=== PATIENT | female | born 1995 | race Hispanic/Latino ===

== ENCOUNTER 2021-08-05 05:22 | Emergency (ER) | payer SELFPAY ==
[~2021-08-05] VITALS: Ht 165.1 cm; Wt 100.0 kg
[2021-08-05] VITALS (13 sets, daily range): BP systolic 78–127; BP diastolic 36–4412
[~2021-08-05 05:22] MED LIST: AMLODIPINE5 MG PO; CEPHALEXIN500 M1 PO; FLEXERIL PO; METFORMIN500 MG PO; MOTRIN400 MG PO; NAPROXEN250 MG PO; NO MEDS; ONDANSETRON4 MG PO; ULTRAM50 M1 PO
[2021-08-05] MEDS ORDERED: LANTUS100 UNIT SC (06:01)
[2021-08-05] MEDS ORDERED: HUMALOG100 UNIT/M SC (06:02)
[2021-08-05 06:08] LABS: HEMATOCRIT 40.6 % (37.0-47.0); HEMOGLOBIN 13.6 g/dl (12.0-16.0); IMMATURE GRANULOCYTES 0.2 % (0.0-5.0); MEAN CELL VOLUME 84.8 fL CALC (80.0-100.0); MEAN CORPUSCULAR HGB 28.4 pG CALC (26.0-32.0); MEAN CORPUSCULAR HGB CONC 33.5 g/dL CAL (32.0-36.0); NEUT# 4.18 thou/uL (2.00-7.15); RED BLOOD COUNT 4.79 mill/uL (4.20-5.60); RED CELL DISTRI WIDTH 12.6 % (11.5-15.5)
[2021-08-05 06:19] LABS: ALKALINE PHOSPHATASE 54 u/l (38-126); AMYLASE 76 u/l (30-110); ANION GAP 14 (6-22 (CALC)); BILIRUBIN, TOTAL 0.4 mg/dL (0.0-1.4); BUN 23 mg/dL (7-17); BUN/CREATININE RATIO 40 (12-20 (CALC)); CARBON DIOXIDE 23 mmol/l (22-30); CHLORIDE 105 mmol/l (95-108); CREATININE 0.6 mg/dL (0.5-1.0); GFR > 60 ML/MIN (>=60 (CALC)); GFR FOR AFR.AMER. > 60 ML/MIN (>=60 (CALC)); LIPASE 61 u/l (23-300); POTASSIUM 3.1 mmol/l (3.5-5.1); SGOT/AST 28 u/l (14-36); SODIUM 139 mmol/l (137-146); TOTAL PROTEIN 6.8 g/dL (6.3-8.2)
[2021-08-05 08:02] LABS: URINE BILIRUBIN - DIPSTICK NEGATIVE (NEGATIVE); URINE BLOOD DIPSTICK NEGATIVE (NEGATIVE); URINE COLOR YELLOW; URINE GLUCOSE - DIPSTICK NEGATIVE (NEGATIVE); URINE KETONE TRACE mg/dL (NEGATIVE); URINE LEUK ESTERASE NEGATIVE (NEGATIVE); URINE NITRITE - DIPSTICK NEGATIVE (Negative); URINE PH 5.5 (4.5-8.0); URINE PROTEIN - DIPSTICK TRACE mg/dL (NEG-TRACE); URINE SPECIFIC GRAVITY 1.025; URINE UROBILINOGEN - DIPSTICK 0.2 E.U./dL (0.2)
[2021-08-05] MEDS ORDERED: ZOFRAN4 MG/TAB PO (13:23)
== END 2021-08-05 14:55 | disposition home or self-care (01) | DRG 392 ==
LOC: ED 05:22
PROVIDERS: Family Medicine
DX: R11.2 Nausea with vomiting, unspecified (principal); R10.13 Epigastric pain; R19.7 Diarrhea, unspecified; R00.0 Tachycardia, unspecified; E11.9 Type 2 diabetes mellitus without complications; Z79.4 Long term (current) use of insulin; Z20.822 Contact with and (suspected) exposure to COVID-19
CPT/HCPCS: J3475; Q9967

== ENCOUNTER 2021-12-31 16:23 | Inpatient (IN) | payer SELFPAY ==
[2021-12-31] VITALS (18 sets, daily range): BP systolic 86–108; BP diastolic 51–71
[~2021-12-31] VITALS: Ht 167.6 cm; Wt 97.0 kg
[~2021-12-31 16:23] MED LIST changes: +HUMALOG100 UNIT/M SC; +LANTUS100 UNIT SC; +ZOFRAN4 MG/TAB PO
--- NOTE | 2021-12-31 16:47 | NUR ---
PATIENT ESCORTED TO ROOM VIA WHEELCHAIR IN NAD. CONNECTED TO MONITOR AND PROVIDER NOTIFIED OF PATIENT STATUS.
[2021-12-31 17:26] LABS: IMMATURE GRANULOCYTES 1.7 % (0.0-5.0); MEAN CELL VOLUME 88.8 fL CALC (80.0-100.0); MEAN CORPUSCULAR HGB 29.5 pG CALC (26.0-32.0); MEAN CORPUSCULAR HGB CONC 33.2 g/dL CAL (32.0-36.0); NEUT# 14.86 thou/uL (2.00-7.15); RED BLOOD COUNT 3.76 mill/uL (4.20-5.60); RED CELL DISTRI WIDTH 12.7 % (11.5-15.5)
[2021-12-31 17:28] LABS: HEMATOCRIT 33.4 % (37.0-47.0); HEMOGLOBIN 11.1 g/dl (12.0-16.0)
[2021-12-31 17:39] LABS: ALBUMIN 3.7 g/dL (3.2-5.0); TOTAL PROTEIN 6.4 g/dL (6.3-8.2)
--- NOTE | 2021-12-31 17:47 | NUR ---
Reassessment of patient completed. No distress noted.
[2021-12-31 17:53] LABS: BILIRUBIN, TOTAL 0.6 mg/dL (0.0-1.4); CREATININE 2.7 mg/dL (0.5-1.0); POTASSIUM 5.6 mmol/l (3.5-5.1)
[2021-12-31 18:39] LABS: URINE BILIRUBIN - DIPSTICK NEGATIVE (NEGATIVE); URINE BLOOD DIPSTICK NEGATIVE (NEGATIVE); URINE COLOR YELLOW; URINE GLUCOSE - DIPSTICK >=1000 mg/dL (NEGATIVE); URINE KETONE TRACE mg/dL (NEGATIVE); URINE LEUK ESTERASE NEGATIVE (NEGATIVE); URINE PH 5.5 (4.5-8.0); URINE PROTEIN - DIPSTICK NEGATIVE (NEG-TRACE); URINE UROBILINOGEN - DIPSTICK 0.2 E.U./dL (0.2)
[2021-12-31 18:43] LABS: URINE NITRITE - DIPSTICK NEGATIVE (Negative)
--- NOTE | 2021-12-31 19:10 | NUR ---
DR DENNY AT BEDSIDE DISCUSSING POC WITH PT AND FAMILY
[2021-12-31] MEDS ORDERED: ATORVASTATIN CA40 MG PO (19:31)
[2021-12-31] MEDS ORDERED: FENOFIBRATE145 MG PO (19:32)
[2021-12-31] MEDS ORDERED: PRAVASTATIN SOD20 MG PO (19:32)
[2021-12-31] MEDS ORDERED: LISINOPRIL20 M1 PO (19:33)
[2021-12-31] MEDS ORDERED: ATENOLOL25 MG PO (19:34)
--- NOTE | 2021-12-31 20:27 | NUR ---
RPT CALLED TO [facility] FOR MS 262.
--- NOTE | 2021-12-31 20:40 | NUR ---
PT RETURNED FROM [facility]. BS 533. TO FLOOR VIA W/C WITH POCKET MONITOR.
--- NOTE | 2021-12-31 20:45 | NUR ---
PT WAITING FOR TO BRING HER FOOD BEFORE SHE GOES UPSTAIRS.
--- NOTE | 2021-12-31 21:11 | NUR ---
PT BEING TRANSPORTED TO ROOM AT THIS TIME.
--- NOTE | 2021-12-31 21:15 | NUR ---
ARRIVED TO ROOM 262 FROM ER ACCOMPANIED BY NURSE AND . BROUGHT DINNER FROM HOME FOR PATIENT. BLOOD SUGAR CHECKED ON ARRIVAL 446 MG/DL.LAB CALLED REPORTED SECOND LACTIC ACID RESULTS 3.1 DR ANDERSON CALLED TO REPORT CRITAL VALUE OF BLOOD SUGAR. STATED TO FOLLOW HUMALOG SLIDING SCALE COVERAGE AND GIVE LEVEMIR 50 UNITS ORDERED. PLAN TO INITIATE DIETARY COULT FOR NUTRITIONAL MANAGEMENT.
--- NOTE | 2021-12-31 23:21 | NUR ---
RESTING QUIETLY IN BED NO ACUTE DISTRESS NOTED. RESPIRATIONS EVEN AND UNLABORED
[2022-01-01] VITALS (26 sets, daily range): BP systolic 72–133; BP diastolic 39–88
--- NOTE | 2022-01-01 00:15 | NUR ---
ASSISTED OUT OF BED TO USE BATHROOM GAIT STRONG AND STEADY. PAIENT REQUEST TYLENOL FOR HEADACHE AND MEDICATION TO ASSIST WITH SLEEP. WARM BLANKET PROVIDED FOR COMFORT. CELL STRIPPER SHOWS SINUS TACHYCARDIA WITH ACTIVITY.
--- NOTE | 2022-01-01 03:15 | NUR ---
RECEIVED PATIENT FROM [facility] FLOOR AT THIS TIME DUE TO ELEVATED TROPONINS. REPORT GIVEN MY NURSE KARLOS JIMENEZ TO THIS NURSE. PATIENT ADMITTED TO ROOM AND GIVEN ROOM ORIENTATION AND CALL LIGHT. PATIENT ALERT AND ORIENTED AT THIS TIME. IV PATENT AND RUNNING NORMAL SALINE AT 100ML/HR. DIRT BIKE MECHANIC IS READING SINUS RHYTHM HR 96 BP IS 104/55 PATIENT ON ROOM AIR AND SPO2 IS 96%. SIDERAILS ARE UP CALL LIGHT IS WITHIN REACH WAITING ON CT SCAN REPORT AND LAB PRIOR TO STARTING HEP DRIP.,
--- NOTE | 2022-01-01 03:30 | NUR ---
PATIENT CT OF THE HEAD COMPLETED.TOLERATED WELL. TRANSFERED TO ICU BED 6 BED-SIDE REPORT PROVIDED.
[2022-01-01 04:31] LABS: HEMATOCRIT 30.7 % (37.0-47.0); HEMOGLOBIN 10.2 g/dl (12.0-16.0); MEAN CELL VOLUME 88.7 fL CALC (80.0-100.0); MEAN CORPUSCULAR HGB 29.5 pG CALC (26.0-32.0); MEAN CORPUSCULAR HGB CONC 33.2 g/dL CAL (32.0-36.0); RED BLOOD COUNT 3.46 mill/uL (4.20-5.60); RED CELL DISTRI WIDTH 12.7 % (11.5-15.5)
[2022-01-01 04:53] LABS: BUN 23 mg/dL (7-17); CARBON DIOXIDE 23 mmol/l (22-30); CHLORIDE 105 mmol/l (95-108); CHOLESTEROL HDL RATIO 3.8 (<4.4 (CALC)); HDL CHOLESTEROL 33 mg/dL (>=40); TOTAL CHOLESTEROL 126 mg/dl (0-199)
[2022-01-01 05:01] LABS: ANION GAP 10 (6-22 (CALC)); BUN/CREATININE RATIO 23 (12-20 (CALC)); GFR FOR AFR.AMER. > 60 ML/MIN (>=60 (CALC)); GFR OTHER RACES > 60 ML/MIN (>=60 (CALC)); MAGNESIUM 1.7 mg/dL (1.6-2.3); POTASSIUM 3.7 mmol/l (3.5-5.1); SODIUM 134 mmol/l (137-146); TOTAL TRIGLYCERIDES 498 mg/dl (30-149)
--- NOTE | 2022-01-01 06:14 | NUR ---
PATIENT COMPLAINING OF HEADACHE AT THIS TIME AND RATES HER PAIN A "8" OUT OF THE PAIN SCALE OF 0-10. 650MG OF TYLENOL GIVEN AT THIS TIME WILL CONTINUE TO MONITOR. HEP DRIP ALSO STARTED PER PROTOCOL.
--- NOTE | 2022-01-01 07:18 | NUR ---
PT IS SLEEPING, EASILY AROUSED. PT HAS BEEN ASSESSED, PT HAS C/O A HEADACHE THAT HASN'T BEEN RELIEVED WITH MEDICATION. PT AWAITING TO SPEAK TO PHYS. TO READJUST MEDS. PT IS A&OX4, FOLLOWS COMMANDS, AND IS ABLE TO MAKE NEEDS KNOWN. PT HAS CALL LIGHT NEAR AND FALL PRECAUTIONS IN PLACE. PT HAS IVF AND HEPARIN GTT INFUSING. WILL CONTINUE TO MONITOR.
--- NOTE | 2022-01-01 10:15 | NUR ---
PT HAS FAMILY AT BEDSIDE. PT HAS 22 PLACED IN RIGHT HAND. PT AWAITING CTA. WILL CONTINUE TO MONITOR.
--- NOTE | 2022-01-01 14:25 | NUR ---
PT HAS NO CHANGE, PT HAS FAMILY AT BEDSIDE. PT HAS CALL LIGHT NEAR AND WILL MAKE NEEDS KNOWN.
--- NOTE | 2022-01-01 17:26 | NUR ---
PT HAS BEEN ASSISTED TO [facility]. PT GAIT IS STEADY, PT IS AWARE TO CALL FOR ANY ASSISTANCE. PT HAS NO CHANGE TO ASSISTANCE. WILL CONTINUE TO MONITOR.
--- NOTE | 2022-01-01 18:34 | NUR ---
LAB PRESENT, UNABLE TO DRAW PT. RN ATTEMPTED; UNSUCESSFUL. LAB STATES NEXT SHIFT WILL TRY.
--- NOTE | 2022-01-01 20:00 | NUR ---
CONTACTED [facility] TO CONFIRM DOSAGE FOR HEPARIN DRIP. CURRENT DOSE IS 400UNITS/HR AT 8MLS/HR. PTT SUBTHERAPUTIC AT 25.5. INFORMED THAT DOSE SHOULD BE ADJUSTED TO 800UNITS AND PT SHOULD RECEIVE A 7000 UNIT BOLUS PER HIGH DOSE PROTOCAL.
--- NOTE | 2022-01-01 20:30 | NUR ---
CONTACTED EMILEE SHAY RN, ICU DIRECTOR FOR ADDITIONAL CLARIFICATION. CONFIRMED PT SHOULD BE ON HIGH DOSE PROTOCAL. KARLOS HEBERT WILL INFORM AND WILL FOLLOW UP WITH NEXT STEPS.
--- NOTE | 2022-01-01 21:00 | NUR ---
RECEIVED PHONE CALL BACK FROM KARLOS HEBERT REGARDING HEPARIN DRIP. PT IS TO BE ON HERPARIN HIGH DOSE PROTOCAL. FOLLOW EXISTING PROTOCAL FOR HIGH DOSE. WE WILL START OVER WITH THE INITICIAL START UP DOSE, THEN RECHECK 6 HOURS FROM NOW.
--- NOTE | 2022-01-01 22:06 | NUR ---
RECEIVED CALL BACK FROM [facility] REQUESTING THAT WE FAX OVER HIGH DOSE HEPARIN PROTOCAL WITH PTS LABEL. INFORMED BY JET, PHARMACIST THAT THIS MORNING A LOW DOSE PROTOCAL WAS FORWARDED TO PHARMACY. INFORMED HER THAT WE ARE NOT ABLE TO SEE THAT ORDER ON OUR END. CONTACTED KARLOS HEBERT ICU DIRECTOR REGARDING NEW INFORMATION. PT BEING CHANGED FROM HIGH DOSE TO LOW DOSE PROTOCAL DUE TO NEGATIVE CTA AND TROPONINS TRENDING DOWN. PT NOW ON HEPARIN DRIP SET AT 1000 UNIT/HR. BOLUS AT 5000 UNITS. [facility] AWARE OF EVENTS. ALSO UPDATED ORDER IN [employer] TO ALLOW US TO SEE THE PROTOCAL ON [employer].
[2022-01-02 00:14] VITALS: BP 100/63
[2022-01-02 02:05] VITALS: BP 95/51
[2022-01-02 03:09] LABS: HEMATOCRIT 29.3 % (37.0-47.0); HEMOGLOBIN 9.8 g/dl (12.0-16.0); IMMATURE GRANULOCYTES 0.6 % (0.0-5.0); MEAN CELL VOLUME 90.2 fL CALC (80.0-100.0); MEAN CORPUSCULAR HGB 30.2 pG CALC (26.0-32.0); MEAN CORPUSCULAR HGB CONC 33.4 g/dL CAL (32.0-36.0); NEUT# 5.26 thou/uL (2.00-7.15); RED BLOOD COUNT 3.25 mill/uL (4.20-5.60); RED CELL DISTRI WIDTH 12.6 % (11.5-15.5)
[2022-01-02 03:15] LABS: ALKALINE PHOSPHATASE 69 u/l (38-126); ANION GAP 10 (6-22 (CALC)); BUN 15 mg/dL (7-17); BUN/CREATININE RATIO 24 (12-20 (CALC)); CARBON DIOXIDE 22 mmol/l (22-30); CHLORIDE 108 mmol/l (95-108); CREATININE 0.6 mg/dL (0.5-1.0); GFR FOR AFR.AMER. > 60 ML/MIN (>=60 (CALC)); GFR OTHER RACES > 60 ML/MIN (>=60 (CALC)); MAGNESIUM 1.6 mg/dL (1.6-2.3); SODIUM 135 mmol/l (137-146); TOTAL PROTEIN 5.5 g/dL (6.3-8.2)
[2022-01-02 03:16] LABS: BILIRUBIN, TOTAL 0.2 mg/dL (0.0-1.4); SGOT/AST 143 u/l (14-36)
--- NOTE | 2022-01-02 03:48 | NUR ---
PTS PTT 31.9, LOW DOSE PROTOCAL FOLLOWED.
[2022-01-02 04:00] VITALS: BP 106/65
[2022-01-02 06:00] VITALS: BP 97/66
--- NOTE | 2022-01-02 06:37 | NUR ---
PT COMPLAINED OF HEADACHE THIS MORNING. EXPLAINED THAT SHE DID HAVE THIS HEADACHE BEFORE AND IT DID IMPROVE WITH TYLENOL. COMPLETED ASSESSMENT. PT ON HEPARIN DRIP, THAT CONTINUES TO BE TITRATED. NO VISIBLE SIGNS OF BLEEDING AT THIS TIME. PT ALERT AND ORIENTED AND FOLLOWING COMMANDS. VITAL SIGNS ARE WITHIN NORMAL LIMITS. SAFETY PRECAUTIONS ARE IN PLACE. PT BEING CLOSELY MONITORED.
--- NOTE | 2022-01-02 07:21 | NUR ---
PT IS SLEEPING EASILY AROUSABLE. PT IS A&OX4, WITH NO COMPLAINTS AT THIS TIME. PT HAS CALL LIGHT NEAR AND SAFETY PRECAUTIONS IN PLACE. PT HAS HEPARIN GTT INFUSING; CURRENT RATE 1400 UNITS. PT IS WANTING TO GO HOME, PT ADVISED DR WILL MAKE ROUNDS. PT FOLLOWS COMMANDS, HAS CALL LIGHT NEAR AND WILL MAKE NEEDS KNOWN. WILL CONTINUE TO MONITOR.
[2022-01-02 08:02] VITALS: BP 131/83
[2022-01-02 08:31] VITALS: BP 131/83
[2022-01-02] MEDS ORDERED: DOXY-CAPS100 MG PO (09:48)
--- NOTE | 2022-01-02 10:00 | NUR ---
R'CD ORDERS FOR D/C. PT STATES SHE FEELS STABLE TO GO HOME. PT HAS NO CHANGE TO ASSESSMENT.
--- NOTE | 2022-01-02 11:51 | NUR ---
REVIEWED PT D/C INSTRUCTIONS PT UNDERSTANDS TO MAKE HER FOLLOW UP APPTS. PT IS WAITING FOR SPOUSE.
== END 2022-01-02 12:10 | disposition home or self-care (01) | DRG 311 ==
LOC: ED 16:23 → ED-I 19:00 → ED 19:35 → MS2 19:36 → ICU 01-01 03:00
PROVIDERS: Internal Medicine; ADMIT Internal Medicine; ATTEND Internal Medicine
DX: I24.8 Other forms of acute ischemic heart disease (principal); J18.9 Pneumonia, unspecified organism; N17.9 Acute kidney failure, unspecified; E87.1 Hypo-osmolality and hyponatremia; E11.65 Type 2 diabetes mellitus with hyperglycemia; I10 Essential (primary) hypertension; E78.5 Hyperlipidemia, unspecified; R74.8 Abnormal levels of other serum enzymes; D50.0 Iron deficiency anemia secondary to blood loss (chronic); E86.0 Dehydration; E87.6 Hypokalemia; E66.9 Obesity, unspecified; Z68.34 Body mass index [BMI] 34.0-34.9, adult; Z88.0 Allergy status to penicillin; Z79.4 Long term (current) use of insulin; Z20.822 Contact with and (suspected) exposure to COVID-19
CPT/HCPCS: J1644; Q9967

== ENCOUNTER 2022-04-21 13:13 | Emergency (ER) | payer SELFPAY ==
[~2022-04-21] VITALS: Ht 167.6 cm; Wt 90.9 kg
[2022-04-21] VITALS (8 sets, daily range): BP systolic 107–127; BP diastolic 48–73
[~2022-04-21 13:13] MED LIST changes: +ATENOLOL25 MG PO; +ATORVASTATIN CA40 MG PO; +DOXY-CAPS100 MG PO; +FENOFIBRATE145 MG PO; +LISINOPRIL20 M1 PO; +PRAVASTATIN SOD20 MG PO
[2022-04-21 14:25] LABS: URINE BILIRUBIN - DIPSTICK NEGATIVE (NEGATIVE); URINE BLOOD DIPSTICK LARGE (NEGATIVE); URINE COLOR YELLOW; URINE GLUCOSE - DIPSTICK >=1000 mg/dL (NEGATIVE); URINE KETONE TRACE mg/dL (NEGATIVE); URINE LEUK ESTERASE NEGATIVE (NEGATIVE); URINE PROTEIN - DIPSTICK NEGATIVE (NEG-TRACE); URINE SPECIFIC GRAVITY <=1.005; URINE UROBILINOGEN - DIPSTICK 0.2 E.U./dL (0.2)
[2022-04-21 14:31] LABS: URINE NITRITE - DIPSTICK NEGATIVE (Negative)
[2022-04-21 14:32] LABS: URINE RBC 25-50 RBC/hpf (0-5)
[2022-04-21 14:33] LABS: IMMATURE GRANULOCYTES 0.1 % (0.0-5.0); MEAN CORPUSCULAR HGB 28.7 pG CALC (26.0-32.0); MEAN CORPUSCULAR HGB CONC 34.5 g/dL CAL (32.0-36.0); NEUT# 4.52 thou/uL (2.00-7.15); RED BLOOD COUNT 4.6 mill/uL (4.20-5.60)
[2022-04-21 14:34] LABS: HEMATOCRIT 38.3 % (37.0-47.0); HEMOGLOBIN 13.2 g/dl (12.0-16.0); MEAN CELL VOLUME 83.3 fL CALC (80.0-100.0)
[2022-04-21 15:37] LABS: ALKALINE PHOSPHATASE 99 u/l (38-126); ANION GAP 14 (6-22 (CALC)); BUN 17 mg/dL (7-17); BUN/CREATININE RATIO 28 (12-20 (CALC)); CARBON DIOXIDE 24 mmol/l (22-30); CHLORIDE 101 mmol/l (95-108); CREATININE 0.6 mg/dL (0.5-1.0); GFR FOR AFR.AMER. > 60 ML/MIN (>=60 (CALC)); GFR OTHER RACES > 60 ML/MIN (>=60 (CALC)); POTASSIUM 4.6 mmol/l (3.5-5.1); SGOT/AST 46 u/l (14-36); SODIUM 134 mmol/l (137-146)
[2022-04-21 15:40] LABS: BILIRUBIN, TOTAL 0.4 mg/dL (0.0-1.4); TOTAL PROTEIN 7.1 g/dL (6.3-8.2)
[2022-04-21] MEDS ORDERED: HYDROCO/APAP1 TA9 PO (18:33)
[2022-04-21] MEDS ORDERED: BACTRIM DS1 TAB PO (18:33)
[2022-04-21] MEDS ORDERED: OMNICEF300 MG PO (18:33)
== END 2022-04-21 18:57 | disposition home or self-care (01) | DRG 603 ==
LOC: ED 13:13
PROVIDERS: Nurse Practitioner
DX: L03.211 Cellulitis of face (principal); I10 Essential (primary) hypertension; E11.9 Type 2 diabetes mellitus without complications; E78.5 Hyperlipidemia, unspecified; Z79.4 Long term (current) use of insulin
CPT/HCPCS: Q9967

== ENCOUNTER 2022-08-31 13:47 | Emergency (ER) | payer SELFPAY ==
[~2022-08-31] VITALS: Ht 167.6 cm; Wt 81.0 kg
[~2022-08-31 13:47] MED LIST changes: +BACTRIM DS1 TAB PO; +HYDROCO/APAP1 TA9 PO; +OMNICEF300 MG PO
[2022-08-31 14:08] VITALS: BP 129/75
[2022-08-31 14:15] VITALS: BP 126/66
[2022-08-31 14:37] VITALS: BP 146/88
[2022-08-31 14:45] LABS: BASO% 0.1 % (0-3); EOS% 2.2 % (0-8); HEMATOCRIT 35.6 % (37.0-47.0); HEMOGLOBIN 12.4 g/dl (12.0-16.0); IMMATURE GRANULOCYTES 0.1 % (0.0-5.0); LYMPH% 39.2 % (15-41); MEAN CELL VOLUME 83.2 fL CALC (80.0-100.0); MEAN CORPUSCULAR HGB CONC 34.8 g/dL CAL (32.0-36.0); MONO% 8.9 % (2-13); NEUT# 3.45 thou/uL (2.00-7.15); NEUT% 49.5 % (42-76); RED BLOOD COUNT 4.28 mill/uL (4.20-5.60); RED CELL DISTRI WIDTH 11.7 % (11.5-15.5)
[2022-08-31 14:55] LABS: ALBUMIN 3.6 g/dL (3.2-5.0); ALKALINE PHOSPHATASE 80 u/l (38-126); ANION GAP 13 (6-22 (CALC)); BILIRUBIN, TOTAL 0.2 mg/dL (0.02-1.3); BUN 18 mg/dL (7-17); BUN/CREATININE RATIO 36 (12-20 (CALC)); CARBON DIOXIDE 24 mmol/l (22-30); CHLORIDE 100 mmol/l (95-108); CREATININE 0.5 mg/dL (0.5-1.0); GFR FOR AFR.AMER. > 60 ML/MIN (>=60 (CALC)); GFR OTHER RACES > 60 ML/MIN (>=60 (CALC)); LIPASE 84 u/l (23-300); POTASSIUM 4.4 mmol/l (3.5-5.1); SGOT/AST 21 u/l (14-36); SODIUM 133 mmol/l (137-146); TOTAL PROTEIN 6.1 g/dL (6.3-8.2)
[2022-08-31 17:10] LABS: URINE BILIRUBIN - DIPSTICK NEGATIVE (NEGATIVE); URINE BLOOD DIPSTICK NEGATIVE (NEGATIVE); URINE COLOR YELLOW; URINE GLUCOSE - DIPSTICK >=1000 mg/dL (NEGATIVE); URINE KETONE NEGATIVE (NEGATIVE); URINE LEUK ESTERASE NEGATIVE (NEGATIVE); URINE PROTEIN - DIPSTICK NEGATIVE (NEG-TRACE); URINE SPECIFIC GRAVITY 1.025; URINE UROBILINOGEN - DIPSTICK 0.2 E.U./dL (0.2)
[2022-08-31 17:11] LABS: URINE NITRITE - DIPSTICK NEGATIVE (Negative)
[2022-08-31 17:47] VITALS: BP 146/88
== END 2022-08-31 18:00 | disposition home or self-care (01) | DRG 392 ==
LOC: ED 13:47
PROVIDERS: Emergency Medicine
DX: R10.11 Right upper quadrant pain (principal); E11.9 Type 2 diabetes mellitus without complications; Z79.4 Long term (current) use of insulin; I10 Essential (primary) hypertension

== ENCOUNTER 2022-09-03 09:38 | Emergency (ER) | payer SELFPAY ==
[~2022-09-03] VITALS: Ht 167.6 cm; Wt 81.6 kg
[2022-09-03 09:57] VITALS: BP 134/86
[2022-09-03 10:12] LABS: URINE BILIRUBIN - DIPSTICK NEGATIVE (NEGATIVE); URINE BLOOD DIPSTICK NEGATIVE (NEGATIVE); URINE COLOR YELLOW; URINE GLUCOSE - DIPSTICK >=1000 mg/dL (NEGATIVE); URINE KETONE NEGATIVE (NEGATIVE); URINE LEUK ESTERASE NEGATIVE (NEGATIVE); URINE PH 5.5 (4.5-8.0); URINE PROTEIN - DIPSTICK NEGATIVE (NEG-TRACE); URINE UROBILINOGEN - DIPSTICK 0.2 E.U./dL (0.2)
[2022-09-03 10:13] LABS: BASO% 0.4 % (0-3); EOS% 3.2 % (0-8); HEMATOCRIT 38.7 % (37.0-47.0); HEMOGLOBIN 13.3 g/dl (12.0-16.0); IMMATURE GRANULOCYTES 0.2 % (0.0-5.0); MEAN CELL VOLUME 83.9 fL CALC (80.0-100.0); MEAN CORPUSCULAR HGB 28.9 pG CALC (26.0-32.0); MEAN CORPUSCULAR HGB CONC 34.4 g/dL CAL (32.0-36.0); NEUT# 2.54 thou/uL (2.00-7.15); NEUT% 48.2 % (42-76); RED BLOOD COUNT 4.61 mill/uL (4.20-5.60); RED CELL DISTRI WIDTH 11.8 % (11.5-15.5)
[2022-09-03 10:18] LABS: URINE NITRITE - DIPSTICK NEGATIVE (Negative)
[2022-09-03 10:32] LABS: ALKALINE PHOSPHATASE 78 u/l (38-126); ANION GAP 16 (6-22 (CALC)); BILIRUBIN, TOTAL 0.3 mg/dL (0.02-1.3); BUN 17 mg/dL (7-17); BUN/CREATININE RATIO 27 (12-20 (CALC)); CARBON DIOXIDE 21 mmol/l (22-30); CHLORIDE 101 mmol/l (95-108); CREATININE 0.6 mg/dL (0.5-1.0); GFR FOR AFR.AMER. > 60 ML/MIN (>=60 (CALC)); GFR OTHER RACES > 60 ML/MIN (>=60 (CALC)); LIPASE 62 u/l (23-300); POTASSIUM 4.6 mmol/l (3.5-5.1); SGOT/AST 34 u/l (14-36); SODIUM 133 mmol/l (137-146); TOTAL PROTEIN 7.5 g/dL (6.3-8.2)
[2022-09-03] MEDS ORDERED: NAPROXEN500 MG PO (12:37)
[2022-09-03] MEDS ORDERED: TRAMADOL HYDROC50 M1 PO (12:37)
[2022-09-03] MEDS ORDERED: ZOFRAN4 MG/TAB PO (12:40)
[2022-09-03 12:49] VITALS: BP 134/86
== END 2022-09-03 13:41 | disposition home or self-care (01) | DRG 392 ==
LOC: ED 09:38
PROVIDERS: Family Medicine
DX: R10.9 Unspecified abdominal pain (principal); I10 Essential (primary) hypertension; R00.2 Palpitations; E11.9 Type 2 diabetes mellitus without complications; Z79.84 Long term (current) use of oral hypoglycemic drugs

== ENCOUNTER 2022-09-08 13:05 | Emergency (ER) | payer SELFPAY ==
[~2022-09-08] VITALS: Ht 167.6 cm; Wt 81.6 kg
[~2022-09-08 13:05] MED LIST changes: +NAPROXEN500 MG PO; +TRAMADOL HYDROC50 M1 PO
[2022-09-08 14:35] LABS: URINE BILIRUBIN - DIPSTICK NEGATIVE (NEGATIVE); URINE BLOOD DIPSTICK NEGATIVE (NEGATIVE); URINE COLOR YELLOW; URINE GLUCOSE - DIPSTICK >=1000 mg/dL (NEGATIVE); URINE KETONE 15 mg/dL (NEGATIVE); URINE LEUK ESTERASE NEGATIVE (NEGATIVE); URINE NITRITE - DIPSTICK NEGATIVE (Negative); URINE PROTEIN - DIPSTICK NEGATIVE (NEG-TRACE); URINE SPECIFIC GRAVITY 1.015; URINE UROBILINOGEN - DIPSTICK 0.2 E.U./dL (0.2)
[2022-09-08] MEDS ORDERED: TRAMADOL HYDROC50 M1 PO (17:17)
[2022-09-08 17:34] VITALS: BP 113/83
== END 2022-09-08 17:47 | disposition home or self-care (01) | DRG 392 ==
LOC: ED 13:05
PROVIDERS: Family Medicine
DX: R10.31 Right lower quadrant pain (principal); E11.9 Type 2 diabetes mellitus without complications; I10 Essential (primary) hypertension